=== PATIENT | male | born 1945 | race Caucasian/White ===

== ENCOUNTER 2020-09-08 05:42 | Day surgery (SDC) | payer MEDICARE ==
[2020-09-01 10:11] LABS: BASOPHILS % (AUTO) 0.8 % (0.0-5.0); EOSINOPHILS % (AUTO) 1.1 % (0.0-8.0); HEMATOCRIT 46.4 % (42-54); LYMPHOCYTES % (AUTO) 8.7 % (21.0-51.0); MEAN CORPUSCULAR HEMOGLOBIN 33.1 pg (27.0-33.0); MEAN CORPUSCULAR HGB CONC 34.1 g/dL (32.0-36.0); MEAN CORPUSCULAR VOLUME 97.3 fL (79-99); MONOCYTES % (AUTO) 9.3 % (3.0-13.0); NEUTROPHILS % (AUTO) 79.6 % (40.0-77.0); PLATELET COUNT (AUTO) 292 K/uL (130-400); RED BLOOD CELL COUNT(AUTO) 4.77 MIL/uL (4.50-6.20); RED CELL DISTRIBUTION WIDTH 13.5 % (11.0-15.5); WHITE BLOOD COUNT (AUTO) 8.5 K/uL (4.8-10.8)
[2020-09-01 10:27] LABS: INR 0.96 (0.85-1.15); PROTHROMBIN TIME 10.5 SEC (9.6-11.6)
[2020-09-01 10:28] LABS: PARTIAL THROMBOPLASTIN TIME 26.8 SEC (26.3-35.5)
[2020-09-01 10:29] LABS: ALBUMIN 3.8 g/dL (3.5-5.0); BILIRUBIN,TOTAL 0.7 mg/dL (0.2-1.0); CREATININE 1.6 mg/dL (0.5-1.5); POTASSIUM 4.6 mmol/L (3.5-5.1); TOTAL PROTEIN, SERUM 9.1 g/dL (6.0-8.3)
[2020-09-08] VITALS (18 sets, daily range): BP systolic 114–156; BP diastolic 72–105
[~2020-09-08] VITALS: Ht 171.4 cm; Wt 66.9 kg
[~2020-09-08 05:42] MED LIST: AMLO2.5T4 PO; LEVO50CA4 PO; LORA10TA7 PO; ROPI1TAB13 PO; TACR1CAP10 PO; [UNRECOGNIZED DRUG - OTHER] PO
[2020-09-08] MEDS: CEFAZOLIN SODIUM 1 GM VIAL IVP SCH ×2 (07:00→08:30)
[2020-09-08] MEDS ORDERED: LACTATED RINGERS 1000ML 1,000 ML IV ONE (07:02)
[2020-09-08] MEDS ORDERED: LIDOCAINE 1%-EPI 1:100,000 20 ML VIAL IJ ONE (07:11)
[2020-09-08] MEDS ORDERED: LIDOCAINE PF 100MG/5ML (2%) SYRINGE 5ML ONE (07:19)
[2020-09-08] MEDS ORDERED: SUCCINYLCHOLINE CHLORIDE 20 MG/ML 10 ML VIAL ONE (07:19)
[2020-09-08] MEDS ORDERED: PROPOFOL 10 MG/ML 20ML VIAL IV ONE (07:20)
[2020-09-08] MEDS ORDERED: FENTANYL CITRATE PF 50 MCG/1 ML 2ML VIAL ONE ×2 (07:20→10:45)
[2020-09-08] MEDS ORDERED: SUCCINYLCHOLINE 200MG/10ML SYR ONE (07:23)
[2020-09-08] MEDS ORDERED: MINERAL OIL 30 ML UDCUP PO SCH ×2 (08:00→12:00)
[2020-09-08] MEDS ORDERED: PHENYLEPHRINE HCL 10 MG/ML 1ML VIAL IV ONE (08:19)
[2020-09-08] MEDS ORDERED: ROCURONIUM 10MG/1ML SYR 10 MG/ML ML ONE (08:29)
[2020-09-08] MEDS ORDERED: ACET-2743 PO (09:14)
[2020-09-08] MEDS ORDERED: [UNRECOGNIZED DRUG - OTHER] PO (09:14)
[2020-09-08] MEDS ORDERED: OMEP20CA12 PO (09:14)
[2020-09-08] MEDS ORDERED: THIA250T9 PO (09:14)
== END 2020-09-08 13:00 | disposition home or self-care (01) ==
LOC: DAH 05:42
PROVIDERS: ATTEND Otolaryngology Plastic Surgery within the Head & Neck
DX: C44.229 Squamous cell carcinoma of skin of left ear and external auricular canal (principal); Z20.822 Contact with and (suspected) exposure to COVID-19; I10 Essential (primary) hypertension; K21.9 Gastro-esophageal reflux disease without esophagitis; I45.10 Unspecified right bundle-branch block; Z95.1 Presence of aortocoronary bypass graft; Z98.890 Other specified postprocedural states; Z79.01 Long term (current) use of anticoagulants; Z79.899 Other long term (current) drug therapy
CPT/HCPCS: 15120; 36415; 69120; 71045; 80053; 85025; 85610; 85730; 93005; A4215; A4221; A4222; A4223; A4606; A4649 ×2; A4663; A6223; A6446; C9803; J0330 ×2; J0690; J2001; J2370; J2704; J3010 ×2; J3490; J7120 ×2; U0003

== ENCOUNTER 2020-09-27 10:40 | Observation (INO) | payer MEDICARE ==
[~2020-09-27] VITALS: Ht 171.4 cm; Wt 65.3 kg
[2020-09-27] VITALS (26 sets, daily range): BP systolic 107–146; BP diastolic 67–89
[~2020-09-27 10:40] MED LIST changes: +ACET-2743 PO; +OMEP20CA12 PO; +THIA250T9 PO; +[UNRECOGNIZED DRUG - OTHER] PO
[2020-09-27 11:33] LABS: EOSINOPHILS % (AUTO) 1.2 % (0.0-8.0); HEMATOCRIT 44.3 % (42-54); LYMPHOCYTES % (AUTO) 9.8 % (21.0-51.0); MEAN CORPUSCULAR HEMOGLOBIN 32.4 pg (27.0-33.0); MEAN CORPUSCULAR HGB CONC 33.2 g/dL (32.0-36.0); MEAN CORPUSCULAR VOLUME 97.6 fL (79-99); NEUTROPHILS % (AUTO) 79.5 % (40.0-77.0); PLATELET COUNT (AUTO) 292 K/uL (130-400); RED BLOOD CELL COUNT(AUTO) 4.54 MIL/uL (4.50-6.20); RED CELL DISTRIBUTION WIDTH 13.9 % (11.0-15.5); WHITE BLOOD COUNT (AUTO) 8.4 K/uL (4.8-10.8)
[2020-09-27 11:53] LABS: ALBUMIN 3.5 g/dL (3.5-5.0); BILIRUBIN,TOTAL 0.5 mg/dL (0.2-1.0); CREATININE 1.3 mg/dL (0.5-1.5); POTASSIUM 4.4 mmol/L (3.5-5.1); TOTAL PROTEIN, SERUM 8.7 g/dL (6.0-8.3)
[2020-09-27 12:00] LABS: INR 0.95 (0.85-1.15); PROTHROMBIN TIME 10.4 SEC (9.6-11.6)
[2020-09-27 12:02] LABS: PARTIAL THROMBOPLASTIN TIME 26.3 SEC (26.3-35.5)
[2020-09-27] MEDS ORDERED: LACTATED RINGERS 1000ML 1,000 ML IV ONE (12:07)
[2020-09-27] MEDS ORDERED: AZATHIOPRINE PO (12:48)
[2020-09-27] MEDS ORDERED: OXYC-38 PO (12:50)
[2020-09-27] MEDS ORDERED: CEFAZOLIN SODIUM 1 GM VIAL ONE (13:05)
[2020-09-27] MEDS ORDERED: MINERAL OIL 30 ML UDCUP ONE (13:44)
[2020-09-27] MEDS ORDERED: DEXAMETHASONE SOD PHOSPHATE 10MG/ML 1ML VIAL ONE (13:50)
[2020-09-27] MEDS ORDERED: LIDOCAINE PF 100MG/5ML (2%) SYRINGE 5ML ONE (13:50)
[2020-09-27] MEDS ORDERED: SUCCINYLCHOLINE CHLORIDE 20 MG/ML 10 ML VIAL ONE (13:50)
[2020-09-27] MEDS ORDERED: GLYCOPYRROLATE 1 MG/5 ML SYRINGE ONE (13:51)
[2020-09-27] MEDS ORDERED: NEOSTIGMINE 5MG/5ML SYR IV ONE (13:51)
[2020-09-27] MEDS ORDERED: PROPOFOL 10 MG/ML 20ML VIAL IV ONE ×2 (13:51→17:58)
[2020-09-27] MEDS ORDERED: ROCURONIUM 10MG/1ML SYR 10 MG/ML ML ONE (13:51)
[2020-09-27] MEDS ORDERED: ONDANSETRON 4MG INJ ONE ×2 (13:51→17:58)
[2020-09-27] MEDS ORDERED: MIDAZOLAM HCL 1 MG/ML 2ML VIAL ONE (13:51)
[2020-09-27] MEDS ORDERED: FENTANYL CITRATE PF 50 MCG/1 ML 2ML VIAL ONE (14:03)
[2020-09-27] MEDS ORDERED: NEOMY SULF/BACITRAC ZN/POLY OINT 30GM TUBE TP ONE (18:03)
[2020-09-27] MEDS ORDERED: ACETAMINOPHEN 325 MG TAB PO PRN ×2 (18:30)
[2020-09-27] MEDS ORDERED: NITROGLYCERIN 0.4 MG SL TAB SL PRN (18:30)
[2020-09-27] MEDS ORDERED: OXYCODONE/ACETAMIN 5/325MG TAB PO PRN (18:30)
[2020-09-27] MEDS ORDERED: ONDANSETRON 4MG INJ IV PRN (18:30)
[2020-09-27] MEDS ORDERED: MEPERIDINE-PF 25 MG/ML SYG ONE ×2 (18:41→18:56)
[2020-09-27] MEDS: TACROLIMUS 0.5 MG CAPSULE PO SCH (20:54)
[2020-09-27] MEDS: CEFAZOLIN SODIUM 1 GM VIAL IVP SCH (20:55)
[2020-09-27] MEDS ORDERED: ROPINIROLE HCL 1 MG TABLET PO SCH (21:00)
[2020-09-28 04:00] VITALS: BP 114/82
[2020-09-28] MEDS ORDERED: LEVOTHYROXINE 50 MCG TABLET ONE (05:16)
[2020-09-28 05:21] LABS: BASOPHILS % (AUTO) 0.9 % (0.0-5.0); HEMATOCRIT 38.5 % (42-54); LYMPHOCYTES % (AUTO) 4.9 % (21.0-51.0); MEAN CORPUSCULAR HEMOGLOBIN 32.3 pg (27.0-33.0); MEAN CORPUSCULAR HGB CONC 33.8 g/dL (32.0-36.0); MEAN CORPUSCULAR VOLUME 95.8 fL (79-99); MONOCYTES % (AUTO) 7.7 % (3.0-13.0); NEUTROPHILS % (AUTO) 85.2 % (40.0-77.0); PLATELET COUNT (AUTO) 242 K/uL (130-400); RED BLOOD CELL COUNT(AUTO) 4.02 MIL/uL (4.50-6.20); RED CELL DISTRIBUTION WIDTH 13.7 % (11.0-15.5); WHITE BLOOD COUNT (AUTO) 11.5 K/uL (4.8-10.8)
[2020-09-28] MEDS: CEFAZOLIN SODIUM 1 GM VIAL IVP SCH (05:22)
[2020-09-28] MEDS: LEVOTHYROXINE 50 MCG TABLET PO SCH ×2 (05:32→05:33)
[2020-09-28] MEDS ORDERED: NON-FORMULARY MEDICATION 1 EACH (Levothyroxine Sodium (Levothyroxine) 50 MCG) PO SCH (06:00)
[2020-09-28 06:09] LABS: ALBUMIN 2.7 g/dL (3.5-5.0); BILIRUBIN,TOTAL 0.5 mg/dL (0.2-1.0); CREATININE 1.1 mg/dL (0.5-1.5); MAGNESIUM 1.2 mg/dL (1.80-2.40); POTASSIUM 3.7 mmol/L (3.5-5.1); THYROID STIMULATING HORMONE 0.79 uIU/mL (0.36-3.74); TOTAL PROTEIN, SERUM 7.2 g/dL (6.0-8.3)
[2020-09-28 08:22] VITALS: BP 124/81
[2020-09-28] MEDS ORDERED: AZATHIOPRINE PO SCH (09:00)
[2020-09-28] MEDS ORDERED: AMLODIPINE 2.5 MG TAB PO SCH (09:00)
[2020-09-28] MEDS ORDERED: LORATADINE 10 MG TABLET PO SCH (09:00)
[2020-09-28] MEDS ORDERED: PANTOPRAZOLE 40 MG TAB DR PO SCH (09:00)
[2020-09-28] MEDS ORDERED: MAGNESIUM 2GM PREMIX 50ML 50 ML IV SCH (09:15)
[2020-09-28] MEDS: TACROLIMUS 0.5 MG CAPSULE PO SCH (09:51)
[2020-09-28] MEDS ORDERED: MAGNESIUM OXIDE 400 MG TABLET PO ONE (11:12)
[2020-09-28] MEDS ORDERED: MAGNESIUM OXIDE 400 MG TABLET PO SCH (11:15)
[2020-09-28] MEDS ORDERED: MAGN400T51 PO (11:17)
[2020-09-28 11:29] VITALS: BP 109/79
== END 2020-09-28 12:00 | disposition home or self-care (01) ==
LOC: DAH 10:40 → DAHIP 10:41 → DAH 10:41 → 3AH 19:25
PROVIDERS: ADMIT Internal Medicine; ATTEND Otolaryngology Plastic Surgery within the Head & Neck
DX: C44.229 Squamous cell carcinoma of skin of left ear and external auricular canal (principal); Z20.822 Contact with and (suspected) exposure to COVID-19; C76.0 Malignant neoplasm of head, face and neck; R00.0 Tachycardia, unspecified; I12.9 Hypertensive chronic kidney disease with stage 1 through stage 4 chronic kidney disease, or unspecified chronic kidney disease; E11.22 Type 2 diabetes mellitus with diabetic chronic kidney disease; N18.30 Chronic kidney disease, stage 3 unspecified
CPT/HCPCS: 11646; 15100; 36415 ×2; 71045; 80053 ×2; 83735; 84443; 85025 ×2; 85610; 85730; 87635; 88305; 88307; 88331 ×2; 93005; 96374; 96376; A4215; A4221; A4222; A4223; A4606; A4649 ×2; A4663; A4930; A6204; A6223; G0378 ×18; J0330; J0690 ×3; J1100; J2001; J2175 ×2; J2250; J2405 ×2; J2704 ×2; J2710; J3010; J3490; J7120; J7507 ×2